=== PATIENT | male | born 1985 | race Caucasian/White ===

== ENCOUNTER 2018-08-30 01:25 | Emergency (ER) | payer BC ==
[~2018-08-30] VITALS: Ht 172.7 cm; Wt 102.1 kg
[2018-08-30] MEDS ORDERED: ADDERALL 10 MG10 MG PO (01:50)
[2018-08-30] MEDS ORDERED: AMBIEN 5 MG TABL5 M1 PO (01:51)
[2018-08-30 03:05] VITALS: BP 117/64
--- NOTE | 2018-08-30 10:25 | EKG ---
[place] [address] ELECTROCARDIOGRAM REPORT Name: TAO MORGAN Room: [facility]#: [id number] Admission: 08/30/18 Attend Phys: Discharge: 08/30/18 Date of : 83 Report #: [id number] THIS REPORT FOR: //name// [facility] ED Test Date: 2018-08-30 Test Time: 02:00:53 Pat Name: TAO MORGAN Department: Room: Gender: M Software Support Analyst: : 1985 Requested By: Shazia Padgett Order Number: [id number] MD: Andrei Brown Measurements Intervals Imogene Rate: 72 P: 16 OR: 147 QRS: 36 QRSD: 104 T: 10 QT: 370 QTc: 405 Interpretive Statements Sinus rhythm Baseline wander in lead(s) V2 No previous ECG available for comparison Electronically Signed On 08-30-2018 10:24:50 [employer] by Andrei Brown [email or web address] <ELECTRONICALLY SIGNED> By: Andrei Brown MD, [facility] 08/30/18 1024 0200 0200 Andrei Brown MD, FACC /EPI
== END 2018-08-30 03:07 | disposition home or self-care (01) ==
LOC: M.ERS 01:25
DX: R51 Headache (principal); F90.9 Attention-deficit hyperactivity disorder, unspecified type